=== PATIENT | female | born 1960 | race Caucasian/White ===

== ENCOUNTER 2017-05-16 15:50 | Inpatient (IN) | payer OTHER, MEDICAID ==
[~2017-05-16] VITALS: Ht 162.6 cm; Wt 164.3 kg
[~2017-05-16 15:50] MED LIST: ALLEGRA60 M2 PO; AMOXICILLIN500 MG PO; ASPIRIN81 M1 PO; AUGMENTIN 875 M1 TAB PO; AUGMENTIN 875875 MG PO; BUPROPION HCL150 M2 PO; CIPROFLOXACIN500 MG PO; DIFLUCAN150 MG PO; FEOSOL325 MG PO; FLEXERIL10 MG PO; FLONASE ALLERG9.9 ML NAS; HYDR25T PO; LASIX20 MG PO; LEVOFLOXACIN500 MG PO; LISINOPRIL10 MG PO; LOVASTATIN20 MG PO; MEDROL DOSEPAK4 MG PO; MOBIC7.5 MG PO; MOTRIN800 MG PO; NAPROSYN500 MG PO; NASAL SPRAY 1515 ML NS; NIFEDIPINE ER90 M1 PO; OCEAN NASAL SPR45 ML NAS; Rocaltrol0.25 MCG PO; TESSALON PERLE100 M1 PO; TESSALON PERLE200 MG PO; TRAMADOL HCL50 MG PO; ULTRAM50 MG PO; VICO10300 PO; ZESTRIL30 M1 PO; ZITHROMAX Z PA250 MG PO; ZITHROMAX250 MG PO
[2017-05-16 16:10] VITALS: BP 176/81
[2017-05-16] MEDS ORDERED: METFORMIN750 MG PO (16:13)
[2017-05-16 16:20] VITALS: BP 176/94
[2017-05-16 16:23] LABS: BASO % 0.6 % (0.0-1.0); EOS # 0.5 10*3/uL (0.0-0.4); EOS % 6.7 % (1.0-4.0); HEMATOCRIT 34.5 % (37.0-47.0); HEMOGLOBIN 11.6 g/dl (12.0-16.0); LYMPH # 2.4 10*3/uL (1.3-4.4); LYMPH % 34.7 % (27.0-41.0); MEAN CELL VOLUME 84.8 fl (81.0-99.0); MEAN CORPUSCULAR HGB 28.5 pg (27.0-31.0); MEAN CORPUSCULAR HGB CONC 33.6 g/dl (33.0-37.0); MEAN PLATELET VOLUME 9.4 fl (9.6-12.3); MONO # 0.8 10*3/uL (0.1-1.0); MONO % 11.6 % (3.0-9.0); NEUT # 3.2 10*3/uL (2.3-7.9); NEUT % 46.1 % (47.0-73.0); PLATELET COUNT AUTOMATED 288 10*3/uL (130-400); RED BLOOD COUNT 4.07 10*6/uL (4.10-5.10); RED CELL DISTRI WIDTH 14.1 % (0-14.5)
[2017-05-16 16:40] LABS: ALBUMIN 3.4 gm/dl (3.1-4.5); ALKALINE PHOSPHATASE 60 U/L (45-117); BILIRUBIN, TOTAL 0.8 mg/dl (0.2-1.0); BUN 18 mg/dl (7-24); CARBON DIOXIDE 31 mmol/L (21-32); CHLORIDE 96 mmol/L (98-107); EST GLOM FILT AFRICAN AMERICAN 48 ml/min; GLUCOSE 106 mg/dL (65-99); MAGNESIUM 1.5 mg/dL (1.5-2.1); POTASSIUM 2.6 mmol/L (3.5-5.1); SGOT/AST 22 IU/L (3-35); SGPT/ALT 21 U/L (12-78); SODIUM 139 mmol/L (136-145); TOTAL PROTEIN 7.9 gm/dL (6.4-8.2)
[2017-05-16 16:48] LABS: PROTHROMBIN TIME 10.5 SECONDS (9.0-12.4); TROPONIN I < 0.015 ng/ml (<0.045)
[2017-05-16 17:22] VITALS: BP 176/80
[2017-05-16 18:51] VITALS: BP 150/76
[2017-05-16 19:35] VITALS: BP 134/76
[2017-05-16 20:25] VITALS: BP 142/74
[2017-05-16] MEDS ORDERED: FLONASE ALLERG9.9 ML NAS (20:40)
[2017-05-17] VITALS: BP 116/54
[2017-05-17 06:23] LABS: BASO % 0.5 % (0.0-1.0); EOS # 0.4 10*3/uL (0.0-0.4); HEMATOCRIT 32.5 % (37.0-47.0); HEMOGLOBIN 10.8 g/dl (12.0-16.0); LYMPH # 1.7 10*3/uL (1.3-4.4); LYMPH % 30.3 % (27.0-41.0); MEAN CELL VOLUME 84.4 fl (81.0-99.0); MEAN CORPUSCULAR HGB 28.1 pg (27.0-31.0); MEAN CORPUSCULAR HGB CONC 33.2 g/dl (33.0-37.0); MEAN PLATELET VOLUME 10.3 fl (9.6-12.3); MONO # 0.6 10*3/uL (0.1-1.0); MONO % 10.9 % (3.0-9.0); NEUT # 2.9 10*3/uL (2.3-7.9); NEUT % 51.1 % (47.0-73.0); PLATELET COUNT AUTOMATED 244 10*3/uL (130-400); RED BLOOD COUNT 3.85 10*6/uL (4.10-5.10); WHITE BLOOD COUNT 5.7 10*3/uL (4.8-10.8)
[2017-05-17 06:24] LABS: HEMOGLOBIN A1c 5.8 % (4.8-5.6)
[2017-05-17 06:41] LABS: BUN 15 mg/dl (7-24); CARBON DIOXIDE 34 mmol/L (21-32); CHLORIDE 99 mmol/L (98-107); CHOLESTEROL 171 mg/dL (<200); EST GLOM FILT AFRICAN AMERICAN > 60 ml/min; GLUCOSE 106 mg/dL (65-99); MAGNESIUM 2.1 mg/dL (1.5-2.1); SODIUM 140 mmol/L (136-145); TRIGLYCERIDES 200 mg/dl (<150); VLDL CHOLESTEROL 40 mg/dL (6-40)
[2017-05-17 06:50] LABS: FREE T4 1.08 ng/dl (0.76-1.46); HDL CHOLESTEROL 44 mg/dl (40-60); LDL CHOLESTEROL 87 mg/dL (9-159)
[2017-05-17 07:03] LABS: VITAMIN D, 25-HYDROXY 34.1 ng/mL (30-100)
[2017-05-17 07:04] LABS: FOLIC ACID 8.62 ng/mL (>5.38)
[2017-05-17 08:00] VITALS: BP 110/70
[2017-05-17 12:00] VITALS: BP 135/75
[2017-05-17] MEDS ORDERED: K-Lor 20MEQ20 MEQ PO (15:29)
[2017-05-17 16:00] VITALS: BP 135/83
== END 2017-05-17 18:25 | disposition home or self-care (01) | DRG 309 ==
LOC: ED 15:50 → EDHOLD 18:11 → 5E 18:11
PROVIDERS: Emergency Medicine; Internal Medicine Hospice and Palliative Medicine
DX: R00.2 Palpitations (principal); Z68.44 Body mass index [BMI] 60.0-69.9, adult; N17.9 Acute kidney failure, unspecified; E87.8 Other disorders of electrolyte and fluid balance, not elsewhere classified; R07.9 Chest pain, unspecified; E78.00 Pure hypercholesterolemia, unspecified; G89.29 Other chronic pain; M54.9 Dorsalgia, unspecified; R73.9 Hyperglycemia, unspecified; R73.03 Prediabetes; K11.8 Other diseases of salivary glands; E87.6 Hypokalemia; E66.01 Morbid (severe) obesity due to excess calories; I10 Essential (primary) hypertension; Z79.82 Long term (current) use of aspirin; Z88.4 Allergy status to anesthetic agent; Z88.1 Allergy status to other antibiotic agents; Z88.2 Allergy status to sulfonamides; Z91.018 Allergy to other foods; Z88.5 Allergy status to narcotic agent; Z90.49 Acquired absence of other specified parts of digestive tract; Z82.49 Family history of ischemic heart disease and other diseases of the circulatory system; Z85.22 Personal history of malignant neoplasm of nasal cavities, middle ear, and accessory sinuses; Z87.891 Personal history of nicotine dependence; Z80.0 Family history of malignant neoplasm of digestive organs; Z92.3 Personal history of irradiation

== ENCOUNTER → 2017-05-26 | Outpatient (CLI) | payer OTHER, MEDICAID ==
[~2017-05-26] MED LIST changes: +K-Lor 20MEQ20 MEQ PO; +METFORMIN750 MG PO
== END | disposition home or self-care (01) ==
LOC: CARD 08:51
DX: I08.3 Combined rheumatic disorders of mitral, aortic and tricuspid valves (principal); R01.1 Cardiac murmur, unspecified; R00.2 Palpitations

== ENCOUNTER → 2018-02-07 | Outpatient (CLI) | payer OTHER | END | disposition home or self-care (01) | LOC: MAMMO 09:44 | DX: Z12.31 Encounter for screening mammogram for malignant neoplasm of breast (principal) ==

== ENCOUNTER → 2018-02-28 | Outpatient (CLI) | payer OTHER | END | disposition home or self-care (01) | LOC: US 12:26 | DX: N93.9 Abnormal uterine and vaginal bleeding, unspecified (principal); R31.9 Hematuria, unspecified ==

== ENCOUNTER → 2018-03-22 | Outpatient (CLI) | payer OTHER ==
[2018-03-22 08:21] LABS: BILIRUBIN NEGATIVE (NEGATIVE); BLOOD 3+ (NEGATIVE); CLARITY SL CLOUDY (CLEAR); COLOR YELLOW (YELLOW); GLUCOSE NEGATIVE (NEGATIVE); KETONE NEGATIVE (NEGATIVE); LEUKO ESTERASE NEGATIVE (NEGATIVE); NITRITE NEGATIVE (NEGATIVE); PH 5.5 (5.0-9.0); UROBILINOGEN 0.2 E.U./dl (0.2-1.0)
[2018-03-22 08:38] LABS: RBC TNTC rbc/hpf (0-2)
== END ==
LOC: LAB 07:59
PROVIDERS: Urology
DX: R31.9 Hematuria, unspecified (principal)

== ENCOUNTER → 2018-04-05 | Outpatient (CLI) | payer OTHER ==
[2018-04-05 14:22] LABS: CREATININE 1.19 mg/dL (0.55-1.02)
== END | disposition home or self-care (01) ==
LOC: LAB 13:30 → CT 15:00
PROVIDERS: Radiology Diagnostic Radiology
DX: R31.9 Hematuria, unspecified (principal)

== ENCOUNTER 2019-01-11 08:38 | Emergency (ER) | payer OTHER ==
[~2019-01-11] VITALS: Wt 160.1 kg
--- NOTE | ~2019-01-11 | EKG ---
[place], [place] ELECTROCARDIOGRAM REPORT NAME: NINA DE LA ROSA UNIT #: [id number] ROOM: DOCTOR: AMEYA DRAFT REPORT BIRTHDATE: [birth year] [facility] Test Date: 2019-01-11 Test Time: 08:45:53 Pat Name: NINA DE LA ROSA Department: Room: Gender: F Patent Law Specialist: Radha Bolden : 1960 Requested By: ANTON PINTO Order Number: [id number] Reading MD: Rigo Christie MD Measurements Intervals [place] Rate: 71 P: 54 MT: 179 QRS: 81 QRSD: 99 T: 24 QT: 404 QTc: 439 Interpretive Statements Sinus rhythm Borderline right axis deviation Borderline ST elevation, lateral leads No previous ECG available for comparison Electronically Signed On 01-11-2019 10:00:49 PDT by Rigo Christie MD CM:EKGRPT:ELECTROCARDIOGRAM REPORT [id number] DRAFT REPORT ANTON PINTO MD
[2019-01-11 08:39] VITALS: BP 164/64
[2019-01-11 08:59] LABS: BASO # 0.1 10*3/uL (0.0-0.1); EOS # 0.5 10*3/uL (0.0-0.4); EOS % 6.7 % (1.0-4.0); HEMATOCRIT 35.3 % (37.0-47.0); HEMOGLOBIN 11.3 g/dl (12.0-16.0); LYMPH # 1.9 10*3/uL (1.3-4.4); LYMPH % 28.3 % (27.0-41.0); MEAN CELL VOLUME 88.7 fl (81.0-99.0); MEAN CORPUSCULAR HGB 28.4 pg (27.0-31.0); MEAN PLATELET VOLUME 9.6 fl (9.6-12.3); MONO # 0.8 10*3/uL (0.1-1.0); NEUT # 3.6 10*3/uL (2.3-7.9); NEUT % 52.4 % (47.0-73.0); PLATELET COUNT AUTOMATED 293 10*3/uL (130-400); RED BLOOD COUNT 3.98 10*6/uL (4.10-5.10); RED CELL DISTRI WIDTH 13.8 % (0-14.5); WHITE BLOOD COUNT 6.8 10*3/uL (4.8-10.8)
[2019-01-11 09:05] LABS: ACT PARTIAL THROMBO TIME 21.3 SECONDS (20.8-31.5); INTERNATIONAL NORM RATIO 0.9 (2.0-3.5)
[2019-01-11 09:20] LABS: ALBUMIN 3.3 gm/dl (3.1-4.5); ALKALINE PHOSPHATASE 69 U/L (45-117); BUN 28 mg/dl (7-24); CHLORIDE 105 mmol/L (98-107); CREATININE 1.22 mg/dL (0.55-1.02); POTASSIUM 4.4 mmol/L (3.5-5.1); SGOT/AST 10 IU/L (3-35); SGPT/ALT 16 U/L (12-78); SODIUM 141 mmol/L (136-145); TOTAL PROTEIN 7.9 gm/dL (6.4-8.2)
[2019-01-11 09:29] LABS: TROPONIN I < 0.015 ng/ml (<0.045)
== END 2019-01-11 10:45 | disposition home or self-care (01) ==
LOC: ED 08:38
PROVIDERS: Emergency Medicine
DX: G89.29 Other chronic pain (principal); M54.6 Pain in thoracic spine; R07.89 Other chest pain; M79.18 Myalgia, other site; R05 Cough; E66.01 Morbid (severe) obesity due to excess calories; I10 Essential (primary) hypertension; E78.00 Pure hypercholesterolemia, unspecified; Z88.6 Allergy status to analgesic agent; Z91.018 Allergy to other foods; Z88.1 Allergy status to other antibiotic agents; Z88.2 Allergy status to sulfonamides; Z88.5 Allergy status to narcotic agent; Z79.899 Other long term (current) drug therapy; Z88.8 Allergy status to other drugs, medicaments and biological substances; Z79.82 Long term (current) use of aspirin; Z90.49 Acquired absence of other specified parts of digestive tract; Z90.710 Acquired absence of both cervix and uterus; Z87.891 Personal history of nicotine dependence

== ENCOUNTER → 2019-02-19 | Outpatient (CLI) | payer OTHER | END | disposition home or self-care (01) | LOC: CARD 12:15 | DX: I08.0 Rheumatic disorders of both mitral and aortic valves (principal); R00.2 Palpitations ==

== ENCOUNTER 2019-09-19 11:00 | Emergency (ER) | payer OTHER ==
[~2019-09-19] VITALS: Ht 160 cm; Wt 163.3 kg
[2019-09-19 11:00] VITALS: BP 168/61
[2019-09-19] MEDS ORDERED: SEPTDS PO (13:35)
[2019-09-19] MEDS ORDERED: AMOXICILLIN500 M3 PO (14:00)
== END 2019-09-19 14:07 | disposition home or self-care (01) ==
LOC: ED 11:00
DX: J01.90 Acute sinusitis, unspecified (principal); M25.511 Pain in right shoulder; E11.9 Type 2 diabetes mellitus without complications; E78.00 Pure hypercholesterolemia, unspecified; I10 Essential (primary) hypertension; K21.9 Gastro-esophageal reflux disease without esophagitis; E66.01 Morbid (severe) obesity due to excess calories; E07.9 Disorder of thyroid, unspecified; Z88.6 Allergy status to analgesic agent; Z88.8 Allergy status to other drugs, medicaments and biological substances; Z88.1 Allergy status to other antibiotic agents; Z88.2 Allergy status to sulfonamides; Z88.5 Allergy status to narcotic agent; Z79.899 Other long term (current) drug therapy; Z79.82 Long term (current) use of aspirin; Z87.891 Personal history of nicotine dependence

== ENCOUNTER → 2019-11-20 | Outpatient (CLI) | payer OTHER ==
[~2019-11-20] MED LIST changes: +AMOXICILLIN500 M3 PO; +SEPTDS PO
== END | disposition home or self-care (01) ==
LOC: MAMMO 11-06 08:30
DX: Z12.31 Encounter for screening mammogram for malignant neoplasm of breast (principal)

== ENCOUNTER 2020-01-06 16:34 | Inpatient (IN) | payer OTHER ==
[~2020-01-06] VITALS: Ht 157.4 cm; Wt 179.7 kg
[2020-01-06 16:36] VITALS: BP 146/65
[2020-01-06 17:14] LABS: BASO % 0.5 % (0.0-1.0); EOS # 0.3 10*3/uL (0.0-0.4); EOS % 5.2 % (1.0-4.0); HEMATOCRIT 32.9 % (37.0-47.0); HEMOGLOBIN 10.5 g/dl (12.0-16.0); LYMPH # 1.9 10*3/uL (1.3-4.4); LYMPH % 29.1 % (27.0-41.0); MEAN CELL VOLUME 87.5 fl (81.0-99.0); MEAN CORPUSCULAR HGB 27.9 pg (27.0-31.0); MEAN CORPUSCULAR HGB CONC 31.9 g/dl (33.0-37.0); MEAN PLATELET VOLUME 9.9 fl (9.6-12.3); MONO # 0.8 10*3/uL (0.1-1.0); MONO % 12.1 % (3.0-9.0); NEUT # 3.4 10*3/uL (2.3-7.9); NEUT % 52.5 % (47.0-73.0); PLATELET COUNT AUTOMATED 245 10*3/uL (130-400); RED BLOOD COUNT 3.76 10*6/uL (4.10-5.10); RED CELL DISTRI WIDTH 14.1 % (0-14.5); WHITE BLOOD COUNT 6.5 10*3/uL (4.8-10.8)
[2020-01-06 17:31] LABS: ALBUMIN 2.9 gm/dl (3.1-4.5); ALKALINE PHOSPHATASE 66 U/L (45-117); BUN 22 mg/dl (7-24); CHLORIDE 100 mmol/L (98-107); CREATININE 1.23 mg/dL (0.55-1.02); SGOT/AST 15 IU/L (3-35); SGPT/ALT 18 U/L (12-78); SODIUM 135 mmol/L (136-145); TOTAL PROTEIN 7.3 gm/dL (6.4-8.2)
[2020-01-06 17:32] LABS: INTERNATIONAL NORM RATIO 0.9 (2.0-3.5)
[2020-01-06 17:34] LABS: TROPONIN I < 0.015 ng/ml (<0.045)
[2020-01-06 20:18] VITALS: BP 160/77
[2020-01-06 20:30] VITALS: BP 156/63
--- NOTE | 2020-01-06 20:31 | NUR ---
A 59, admitted to , under the services of JOEL Birmingham DO with a diagnosis of CHEST PAIN. Chief complaint is CHEST PAIN. Patient arrived via stretcher from ER. Monitor applied. Initial assessment completed. Vital signs taken and recorded. JOEL BIRMINGHAM DO notified of admission to the unit. Orders received. See assessment for past medical history, medications and allergies. Patient and/or family oriented to unit. [facility]. Clothing/patient valuable form completed. KOTA BENJAMIN
--- NOTE | 2020-01-06 20:39 | NUR ---
PATIENT'S MED REC PARTIALLY COMPLETED. PATIENT UNSURE OF ALL MEDICATIONS AND LIST WAS LEFT AT HOME.
--- NOTE | 2020-01-06 20:51 | NUR ---
DR BERGERON'S ANSWERING SERVICE AWARE OF CONSULT. REQUESTED CALL BACK
--- NOTE | 2020-01-06 20:57 | NUR ---
SPOKE WITH DOCTOR BERGERON REGARDING PATIENT. STATES TO HOLD OFF ON THE VQ SCAN AND THE STRESS TEST UNTIL SOMEONE SEE'S THE PATIENT IN THE MORNING. STATES HE DOES NOT WANT TO ORDER LOVENOX DUE TO THE PATIENT'S WEIGHT. HEPARIN DRIP ORDER TAKEN AT THIS TIME. STATES TO KEEP THE PATIENT NPO AFTER MIDNIGHT.
--- NOTE | 2020-01-06 21:05 | NUR ---
DR BERGERON STATES TO STOP NORMAL SALINE FLUIDS.
[2020-01-06 21:25] LABS: BASO % 0.4 % (0.0-1.0); EOS # 0.4 10*3/uL (0.0-0.4); HEMATOCRIT 32.9 % (37.0-47.0); HEMOGLOBIN 10.6 g/dl (12.0-16.0); LYMPH # 2.5 10*3/uL (1.3-4.4); LYMPH % 34.6 % (27.0-41.0); MEAN CELL VOLUME 86.8 fl (81.0-99.0); MEAN CORPUSCULAR HGB CONC 32.2 g/dl (33.0-37.0); MEAN PLATELET VOLUME 9.7 fl (9.6-12.3); MONO # 0.8 10*3/uL (0.1-1.0); MONO % 10.6 % (3.0-9.0); NEUT # 3.5 10*3/uL (2.3-7.9); PLATELET COUNT AUTOMATED 257 10*3/uL (130-400); RED BLOOD COUNT 3.79 10*6/uL (4.10-5.10); RED CELL DISTRI WIDTH 14.2 % (0-14.5); WHITE BLOOD COUNT 7.2 10*3/uL (4.8-10.8)
[2020-01-06 21:36] LABS: ACT PARTIAL THROMBO TIME 25.5 SECONDS (20.0-32.1); INTERNATIONAL NORM RATIO 0.9 (2.0-3.5)
--- NOTE | 2020-01-06 22:01 | NUR ---
HEPARIN DRIP VERIFIED WITH NORA THOMPSON AND SHRUTHI FROM PHARMACY.
--- NOTE | 2020-01-06 22:04 | NUR ---
SPOKE TO PHARMACIST SHRUTHI REGARDING HEPARIN PROTOCOL. PATIENT'S WEIGHT IS 180KG. GTT ORDERED AT 12 UNITS/KG/HR. THIS CALLS FOR 2,160 UNITS/HR. PER POLICY, MAX DOSE IS 1,000 UNITS/HR. PER SHRUTHI, RUN HEPARIN GTT AT 5.55 UNITS/KG/HR, WHICH EQUALS 10 ML/HR. HEPARIN GTT INITIATED AND VERIFIED BY TWO RNs.
[2020-01-07] VITALS: BP 122/49
[2020-01-07 03:58] LABS: BASO % 0.5 % (0.0-1.0); EOS # 0.4 10*3/uL (0.0-0.4); EOS % 6.8 % (1.0-4.0); HEMATOCRIT 33.2 % (37.0-47.0); HEMOGLOBIN 10.6 g/dl (12.0-16.0); LYMPH # 2.3 10*3/uL (1.3-4.4); MEAN CELL VOLUME 87.1 fl (81.0-99.0); MEAN CORPUSCULAR HGB 27.8 pg (27.0-31.0); MEAN CORPUSCULAR HGB CONC 31.9 g/dl (33.0-37.0); MEAN PLATELET VOLUME 10.2 fl (9.6-12.3); MONO # 0.7 10*3/uL (0.1-1.0); MONO % 10.4 % (3.0-9.0); PLATELET COUNT AUTOMATED 250 10*3/uL (130-400); RED BLOOD COUNT 3.81 10*6/uL (4.10-5.10); RED CELL DISTRI WIDTH 14.1 % (0-14.5); WHITE BLOOD COUNT 6.4 10*3/uL (4.8-10.8)
[2020-01-07 04:09] LABS: INTERNATIONAL NORM RATIO 0.9 (2.0-3.5)
--- NOTE | 2020-01-07 04:15 | NUR ---
HEPARIN DRIP INCREASED PER POLICY. VERIFIED BY NORA THOMPSON
[2020-01-07 04:16] LABS: CREATININE 1.19 mg/dL (0.55-1.02); FREE T4 1.02 ng/dl (0.76-1.46); PHOSPHOROUS 3.4 mg/dL (2.5-4.9); POTASSIUM 3.1 mmol/L (3.5-5.1)
[2020-01-07 04:22] LABS: THYROID STIM HORMONE (HS) 6.11 uIU/ml (0.358-4.75)
[2020-01-07 05:42] LABS: VITAMIN D, 25-HYDROXY 25.1 ng/mL (30-100)
[2020-01-07 08:00] VITALS: BP 131/55
--- NOTE | 2020-01-07 09:15 | NUR ---
PT RESTING IN BED. NO DISTRESS NOTED. WILL MONITOR DR MARKS IN TO SEE PT
--- NOTE | 2020-01-07 11:45 | NUR ---
INFORMED CONSENT OBTAINED FOR LEXISCAN NUCLEAR STRESS TEST WITH DR. CHAN. RESTING EKG NSR WITH A RESTING HR OF 72 WITH BP OF 118/84. LUNGS CLEAR WITH SPO2 OF 95% ON ROOM AIR. PT COMPLETED A 1:00 LEXISCAN PROTOCOL RECEIVING LEXISCAN 0.4 MG IV OVER 10 SECONDS. HAD NO CHEST PAIN OR ANY EKG CHANGES. HAD C/O FEELING "LIGHTHEADED" THAT WAS RELIEVED IN RECOVERY. HAD A PEAK HR OF 88 WITH BP OF 108/70. LAST RECOVERY HR OF 78 WITH BP OF 104/70. AWAITING SCANNING IN STABLE CONDITION.
--- NOTE | 2020-01-07 12:08 | NUR ---
Planer Operator in to talk to patient. Patient states lives at home with grandson. There are no steps in the home. Physician: tres frey [facility] Home health services: none Patient's level of ADLs: INDEPENDENT Patient has working utilities: all working DME: cane Follow-up physician's appointment after d/c: will be made by hospitalist nurse director upon discharge Does patient want to access PORTAL?: no Discharge plan discussed with patient, she states she lives at home with her grandson, she uses a cane for ambulation and is independent in adls, she states she will return home when medically stable, discussed with her VNA and she wanted to think about this, case management will follow. OZIEL LYONS
--- NOTE | 2020-01-07 12:19 | NUR ---
Provided patients family member with HPOA papers as requested
[2020-01-07 16:00] VITALS: BP 113/89
--- NOTE | 2020-01-07 19:55 | NUR ---
PATIENT RESTING IN BED WITH VISITORS AT BEDSIDE. DENIES NEEDS AT THIS TIME. BED IN LOWEST POSITION, CALL LIGHT IN REACH
[2020-01-07 20:00] VITALS: BP 124/68
--- NOTE | 2020-01-07 21:24 | NUR ---
PROCARDIA WASTED IN [facility] [place] AT NURSES STATION. SPOKE WITH SHRUTHI IN PHARMACY AND MADE HIM AWARE
[2020-01-08] VITALS: BP 118/52
--- NOTE | 2020-01-08 02:35 | NUR ---
24 HR chart check completed.
[2020-01-08 06:31] LABS: BASO % 0.6 % (0.0-1.0); EOS # 0.4 10*3/uL (0.0-0.4); EOS % 5.8 % (1.0-4.0); HEMATOCRIT 32.6 % (37.0-47.0); HEMOGLOBIN 10.4 g/dl (12.0-16.0); LYMPH # 1.8 10*3/uL (1.3-4.4); LYMPH % 27.6 % (27.0-41.0); MEAN CELL VOLUME 86.9 fl (81.0-99.0); MEAN CORPUSCULAR HGB 27.7 pg (27.0-31.0); MEAN CORPUSCULAR HGB CONC 31.9 g/dl (33.0-37.0); MEAN PLATELET VOLUME 10.2 fl (9.6-12.3); MONO # 0.7 10*3/uL (0.1-1.0); MONO % 11.4 % (3.0-9.0); NEUT # 3.5 10*3/uL (2.3-7.9); NEUT % 54.1 % (47.0-73.0); PLATELET COUNT AUTOMATED 259 10*3/uL (130-400); RED BLOOD COUNT 3.75 10*6/uL (4.10-5.10); RED CELL DISTRI WIDTH 14.3 % (0-14.5); WHITE BLOOD COUNT 6.4 10*3/uL (4.8-10.8)
[2020-01-08 06:46] LABS: CREATININE 1.21 mg/dL (0.55-1.02); POTASSIUM 2.9 mmol/L (3.5-5.1)
[2020-01-08 08:00] VITALS: BP 117/50
--- NOTE | 2020-01-08 08:14 | NUR ---
RESIDENT IN TO SEE PATIENT AT THIS TIME.
--- NOTE | 2020-01-08 09:00 | NUR ---
case management visits with patient, daughter present, patient states she will return home when medically stable and is agreeable to [facility] nursing, case management will send a referral to [facility] for when patient is medically stable for discharge
[2020-01-08 12:00] VITALS: BP 124/66
--- NOTE | 2020-01-08 12:00 | NUR ---
IN TO SEE PATIENT.
--- NOTE | 2020-01-08 14:57 | NUR ---
MS Patient signed out AMA. Patient encouraged to stay and advised of possible consequences of premature discharge. Physician and supervisor pipe manufacture ROBERT notified. Patient instructed what to do regarding care post-departure from the hospital; emergency phone numbers provided. Patent was accompanied by DAUGHTER. JULIO GALICIA
== END 2020-01-08 14:57 | disposition left against medical advice (07) | DRG 392 ==
LOC: ED 16:34 → 4E 18:38 → EDHOLD 18:38 → 4E 19:47
PROVIDERS: Emergency Medicine; Internal Medicine; Internal Medicine Cardiovascular Disease; ADMIT Family Medicine
PROC: 4A02XM4 Measurement of Cardiac Total Activity, External Approach (ICD-10-PCS; principal; 2020-01-07)
PROC: 3E073KZ Introduction of Other Diagnostic Substance into Coronary Artery, Percutaneous Approach (ICD-10-PCS; principal; 2020-01-07)
DX: K21.9 Gastro-esophageal reflux disease without esophagitis (principal); E87.1 Hypo-osmolality and hyponatremia; E44.0 Moderate protein-calorie malnutrition; Z68.45 Body mass index [BMI] 70 or greater, adult; E87.6 Hypokalemia; R79.89 Other specified abnormal findings of blood chemistry; M54.9 Dorsalgia, unspecified; G89.29 Other chronic pain; I12.9 Hypertensive chronic kidney disease with stage 1 through stage 4 chronic kidney disease, or unspecified chronic kidney disease; E78.00 Pure hypercholesterolemia, unspecified; E66.01 Morbid (severe) obesity due to excess calories; D64.9 Anemia, unspecified; I89.0 Lymphedema, not elsewhere classified; N18.3 Chronic kidney disease, stage 3 (moderate); Z53.29 Procedure and treatment not carried out because of patient's decision for other reasons; Z88.1 Allergy status to other antibiotic agents; Z88.5 Allergy status to narcotic agent; Z88.2 Allergy status to sulfonamides; Z88.8 Allergy status to other drugs, medicaments and biological substances; Z91.018 Allergy to other foods; Z79.82 Long term (current) use of aspirin; Z79.899 Other long term (current) drug therapy; Z90.49 Acquired absence of other specified parts of digestive tract; Z90.710 Acquired absence of both cervix and uterus; Z85.89 Personal history of malignant neoplasm of other organs and systems; Z87.891 Personal history of nicotine dependence; Z82.49 Family history of ischemic heart disease and other diseases of the circulatory system; Z80.8 Family history of malignant neoplasm of other organs or systems

== ENCOUNTER → 2021-02-18 | Outpatient (CLI) | payer OTHER | END | disposition home or self-care (01) | LOC: MAMMO 02-10 14:00 | PROVIDERS: ATTEND Internal Medicine | DX: Z12.31 Encounter for screening mammogram for malignant neoplasm of breast (principal); N63.11 Unspecified lump in the right breast, upper outer quadrant ==

== ENCOUNTER 2021-04-21 08:52 | Emergency (ER) | payer OTHER ==
[~2021-04-21] VITALS: Ht 157.4 cm; Wt 130.2 kg
[2021-04-21 08:55] VITALS: BP 137/65
== END 2021-04-21 12:59 | disposition home or self-care (01) ==
LOC: ED 08:52
DX: M79.671 Pain in right foot (principal); I12.9 Hypertensive chronic kidney disease with stage 1 through stage 4 chronic kidney disease, or unspecified chronic kidney disease; N18.30 Chronic kidney disease, stage 3 unspecified; E66.01 Morbid (severe) obesity due to excess calories; Z98.890 Other specified postprocedural states; Z90.49 Acquired absence of other specified parts of digestive tract; Z90.711 Acquired absence of uterus with remaining cervical stump; Z88.8 Allergy status to other drugs, medicaments and biological substances; Z88.6 Allergy status to analgesic agent; Z88.2 Allergy status to sulfonamides; Z79.899 Other long term (current) drug therapy

== ENCOUNTER → 2021-08-03 | Outpatient (CLI) | payer OTHER | END | disposition home or self-care (01) | LOC: RAD 14:08 | PROVIDERS: ATTEND Internal Medicine | DX: M17.0 Bilateral primary osteoarthritis of knee (principal); M25.762 Osteophyte, left knee; M25.761 Osteophyte, right knee ==

== ENCOUNTER 2022-02-08 03:10 | Inpatient (IN) | payer OTHER ==
[~2022-02-08] VITALS: Ht 157.4 cm; Wt 178.7 kg
[2022-02-08] VITALS (12 sets, daily range): BP systolic 95–160; BP diastolic 55–78
[2022-02-08 03:25] LABS: BASO % 0.6 % (0.0-1.0); EOS # 0.4 10*3/uL (0.0-0.4); EOS % 5.2 % (1.0-4.0); HEMATOCRIT 34.8 % (37.0-47.0); LYMPH # 2.8 10*3/uL (1.3-4.4); LYMPH % 39.9 % (27.0-41.0); MEAN CELL VOLUME 84.7 fl (81.0-99.0); MEAN PLATELET VOLUME 9.2 fl (9.6-12.3); MONO # 0.7 10*3/uL (0.1-1.0); MONO % 9.6 % (3.0-9.0); NEUT # 3.1 10*3/uL (2.3-7.9); NEUT % 44.3 % (47.0-73.0); PLATELET COUNT AUTOMATED 243 10*3/uL (130-400); RED BLOOD COUNT 4.11 10*6/uL (4.10-5.10); RED CELL DISTRI WIDTH 14.2 % (0-14.5)
[2022-02-08 03:42] LABS: ACT PARTIAL THROMBO TIME 25.3 SECONDS (20.0-32.1); CREATININE 1.33 mg/dL (0.55-1.02); POTASSIUM 3.5 mmol/L (3.5-5.1)
[2022-02-08] MEDS ORDERED: OMEPRAZOLE40 MG PO (03:52)
[2022-02-08] MEDS ORDERED: LOVASTATIN40 MG PO (03:55)
[2022-02-08] MEDS ORDERED: Synthroid,Levo25 MCG PO (03:56)
[2022-02-08] MEDS ORDERED: HYDROCHLOROTHIA50 M1 PO (03:58)
[2022-02-08 14:31] LABS: BILIRUBIN Negative (Negative); BLOOD 2+ (Negative); CLARITY Clear (Clear); COLOR Yellow (Yellow); GLUCOSE Negative (Negative); KETONE Negative (Negative); LEUKO ESTERASE 1+ (Negative); NITRITE Negative (Negative); UROBILINOGEN 0.2 E.U./dl (0.0-1.0)
[2022-02-08 14:47] LABS: BACTERIA 4+; WBC 31-40 wbc/hpf (0-5)
[2022-02-09] VITALS: BP 117/62
[2022-02-09 06:45] LABS: POTASSIUM 3.8 mmol/L (3.5-5.1); TOTAL PROTEIN 7.1 gm/dL (6.4-8.2)
[2022-02-09 06:55] LABS: CREATININE 1.17 mg/dL (0.55-1.02); FREE T4 1.04 ng/dl (0.76-1.46); THYROID STIM HORMONE (HS) 6.31 uIU/ml (0.358-4.75)
[2022-02-09 07:02] LABS: BASO # 0.1 10*3/uL (0.0-0.1); BASO % 0.7 % (0.0-1.0); EOS # 0.5 10*3/uL (0.0-0.4); HEMATOCRIT 35.1 % (37.0-47.0); LYMPH # 2.4 10*3/uL (1.3-4.4); LYMPH % 32.3 % (27.0-41.0); MEAN CELL VOLUME 85.4 fl (81.0-99.0); MEAN CORPUSCULAR HGB CONC 32.8 g/dl (33.0-37.0); MEAN PLATELET VOLUME 10.6 fl (9.6-12.3); MONO # 0.8 10*3/uL (0.1-1.0); MONO % 10.5 % (3.0-9.0); NEUT # 3.6 10*3/uL (2.3-7.9); NEUT % 49.1 % (47.0-73.0); PLATELET COUNT AUTOMATED 269 10*3/uL (130-400); RED BLOOD COUNT 4.11 10*6/uL (4.10-5.10); RED CELL DISTRI WIDTH 14.3 % (0-14.5); WHITE BLOOD COUNT 7.3 10*3/uL (4.8-10.8)
[2022-02-09 08:00] VITALS: BP 122/72
[2022-02-09] MEDS ORDERED: METOPROLOL SUCC50 M1 PO (10:50)
[2022-02-09] MEDS ORDERED: XARELTO20 M1 PO (10:56)
[2022-02-09 12:00] VITALS: BP 138/75
== END 2022-02-09 15:50 | disposition home or self-care (01) | DRG 313 ==
LOC: ED 03:10 → EDHOLD 06:08 → 4E 06:08
PROVIDERS: Internal Medicine; ADMIT Internal Medicine; ATTEND Internal Medicine
DX: R07.89 Other chest pain (principal); N17.0 Acute kidney failure with tubular necrosis; E44.1 Mild protein-calorie malnutrition; Z68.45 Body mass index [BMI] 70 or greater, adult; I48.0 Paroxysmal atrial fibrillation; I12.9 Hypertensive chronic kidney disease with stage 1 through stage 4 chronic kidney disease, or unspecified chronic kidney disease; E78.00 Pure hypercholesterolemia, unspecified; N18.30 Chronic kidney disease, stage 3 unspecified; D64.9 Anemia, unspecified; Z90.49 Acquired absence of other specified parts of digestive tract; Z90.710 Acquired absence of both cervix and uterus; Z82.49 Family history of ischemic heart disease and other diseases of the circulatory system; Z88.2 Allergy status to sulfonamides; Z88.8 Allergy status to other drugs, medicaments and biological substances; Z88.1 Allergy status to other antibiotic agents; Z88.5 Allergy status to narcotic agent; Z79.899 Other long term (current) drug therapy; Z79.82 Long term (current) use of aspirin

== ENCOUNTER → 2022-02-21 | Outpatient (CLI) | payer OTHER ==
[~2022-02-21] MED LIST changes: +HYDROCHLOROTHIA50 M1 PO; +LOVASTATIN40 MG PO; +METOPROLOL SUCC50 M1 PO; +OMEPRAZOLE40 MG PO; +Synthroid,Levo25 MCG PO; +XARELTO20 M1 PO
== END | disposition home or self-care (01) ==
LOC: MAMMO 02-16 11:00
PROVIDERS: ATTEND Internal Medicine
DX: Z12.31 Encounter for screening mammogram for malignant neoplasm of breast (principal)

== ENCOUNTER 2022-03-15 13:46 | Emergency (ER) | payer OTHER ==
[~2022-03-15] VITALS: Ht 157.4 cm; Wt 169.6 kg
[2022-03-15 15:01] LABS: BASO % 0.7 % (0.0-1.0); EOS # 0.3 10*3/uL (0.0-0.4); EOS % 4.8 % (1.0-4.0); HEMATOCRIT 35.8 % (37.0-47.0); LYMPH # 1.7 10*3/uL (1.3-4.4); LYMPH % 28.8 % (27.0-41.0); MEAN CELL VOLUME 86.3 fl (81.0-99.0); MEAN CORPUSCULAR HGB CONC 32.4 g/dl (33.0-37.0); MEAN PLATELET VOLUME 9.5 fl (9.6-12.3); MONO # 0.7 10*3/uL (0.1-1.0); MONO % 12.1 % (3.0-9.0); NEUT # 3.1 10*3/uL (2.3-7.9); NEUT % 53.3 % (47.0-73.0); PLATELET COUNT AUTOMATED 245 10*3/uL (130-400); RED BLOOD COUNT 4.15 10*6/uL (4.10-5.10); RED CELL DISTRI WIDTH 14.1 % (0-14.5); WHITE BLOOD COUNT 5.8 10*3/uL (4.8-10.8)
[2022-03-15 15:16] LABS: ALKALINE PHOSPHATASE 63 U/L (45-117); BUN 19 mg/dl (7-24); CHLORIDE 106 mmol/L (98-107); CREATININE 1.05 mg/dL (0.55-1.02); POTASSIUM 4.3 mmol/L (3.5-5.1); SGOT/AST 17 IU/L (3-35); SGPT/ALT 21 U/L (12-78); SODIUM 139 mmol/L (136-145); TOTAL PROTEIN 7.3 gm/dL (6.4-8.2)
[2022-03-15 17:05] VITALS: BP 154/53
[2022-03-15] MEDS ORDERED: DEEP SEA44 ML INH (17:10)
== END 2022-03-15 17:31 | disposition left against medical advice (07) ==
LOC: ED 13:46
PROVIDERS: Physician Assistant
DX: R51.9 Headache, unspecified (principal); K21.9 Gastro-esophageal reflux disease without esophagitis; I10 Essential (primary) hypertension; E78.00 Pure hypercholesterolemia, unspecified; E66.01 Morbid (severe) obesity due to excess calories; Z88.8 Allergy status to other drugs, medicaments and biological substances; Z79.899 Other long term (current) drug therapy; Z87.891 Personal history of nicotine dependence; Z90.49 Acquired absence of other specified parts of digestive tract; Z90.710 Acquired absence of both cervix and uterus; Z90.89 Acquired absence of other organs

== ENCOUNTER 2022-03-21 19:53 | Emergency (ER) | payer OTHER ==
[~2022-03-21] VITALS: Ht 167.6 cm; Wt 184.6 kg
[~2022-03-21 19:53] MED LIST changes: +DEEP SEA44 ML INH
[2022-03-21 20:20] LABS: BASO # 0.1 10*3/uL (0.0-0.1); BASO % 0.7 % (0.0-1.0); EOS # 0.4 10*3/uL (0.0-0.4); EOS % 5.1 % (1.0-4.0); HEMATOCRIT 33.9 % (37.0-47.0); LYMPH # 2.4 10*3/uL (1.3-4.4); MEAN CELL VOLUME 86.3 fl (81.0-99.0); MEAN CORPUSCULAR HGB 27.7 pg (27.0-31.0); MEAN CORPUSCULAR HGB CONC 32.2 g/dl (33.0-37.0); MEAN PLATELET VOLUME 9.6 fl (9.6-12.3); MONO # 0.9 10*3/uL (0.1-1.0); NEUT # 3.2 10*3/uL (2.3-7.9); NEUT % 45.8 % (47.0-73.0); PLATELET COUNT AUTOMATED 256 10*3/uL (130-400); RED BLOOD COUNT 3.93 10*6/uL (4.10-5.10); RED CELL DISTRI WIDTH 14.2 % (0-14.5); WHITE BLOOD COUNT 6.9 10*3/uL (4.8-10.8)
[2022-03-21 20:32] LABS: ACT PARTIAL THROMBO TIME 32.1 SECONDS (20.0-32.1); INTERNATIONAL NORM RATIO 1.1 (2.0-3.5)
[2022-03-21 20:35] LABS: ALKALINE PHOSPHATASE 57 U/L (45-117); BUN 22 mg/dl (7-24); CHLORIDE 104 mmol/L (98-107); CREATININE 1.11 mg/dL (0.55-1.02); POTASSIUM 4.7 mmol/L (3.5-5.1); SGOT/AST 14 IU/L (3-35); SGPT/ALT 18 U/L (12-78); SODIUM 139 mmol/L (136-145); TOTAL PROTEIN 6.8 gm/dL (6.4-8.2)
[2022-03-21 23:44] VITALS: BP 156/77
== END 2022-03-21 23:45 | disposition home or self-care (01) ==
LOC: ED 19:53
PROVIDERS: Emergency Medicine
DX: I16.0 Hypertensive urgency (principal); Z88.1 Allergy status to other antibiotic agents; Z88.8 Allergy status to other drugs, medicaments and biological substances; Z79.899 Other long term (current) drug therapy; Z79.82 Long term (current) use of aspirin; Z90.89 Acquired absence of other organs; Z90.49 Acquired absence of other specified parts of digestive tract; Z90.710 Acquired absence of both cervix and uterus; Z87.891 Personal history of nicotine dependence

== ENCOUNTER 2022-07-31 14:11 | Emergency (ER) | payer OTHER ==
[~2022-07-31] VITALS: Ht 160 cm; Wt 136.1 kg
[2022-07-31 14:45] LABS: BASO % 0.2 % (0.0-1.0); EOS # 0.1 10*3/uL (0.0-0.4); EOS % 0.5 % (1.0-4.0); HEMATOCRIT 37.8 % (37.0-47.0); LYMPH # 0.5 10*3/uL (1.3-4.4); LYMPH % 4.2 % (27.0-41.0); MEAN CELL VOLUME 83.6 fl (81.0-99.0); MEAN CORPUSCULAR HGB 27.4 pg (27.0-31.0); MEAN CORPUSCULAR HGB CONC 32.8 g/dl (33.0-37.0); MEAN PLATELET VOLUME 9.8 fl (9.6-12.3); MONO % 8.2 % (3.0-9.0); NEUT # 10.7 10*3/uL (2.3-7.9); NEUT % 86.4 % (47.0-73.0); PLATELET COUNT AUTOMATED 220 10*3/uL (130-400); RED BLOOD COUNT 4.52 10*6/uL (4.10-5.10); RED CELL DISTRI WIDTH 13.7 % (0-14.5); WHITE BLOOD COUNT 12.4 10*3/uL (4.8-10.8)
[2022-07-31 14:59] LABS: CREATININE 1.26 mg/dL (0.55-1.02); POTASSIUM 4.3 mmol/L (3.5-5.1); TOTAL PROTEIN 7.4 gm/dL (6.4-8.2)
[2022-07-31 17:07] VITALS: BP 162/74
[2022-08-01] MEDS ORDERED: METOPROLOL SUCC50 M1 PO (22:36)
[2022-08-04] MEDS ORDERED: AMOXICILLIN500 M3 PO (16:34)
== END 2022-07-31 18:15 | disposition home or self-care (01) ==
LOC: ED 14:11
PROVIDERS: Nurse Practitioner Family
DX: B34.9 Viral infection, unspecified (principal); Z20.822 Contact with and (suspected) exposure to COVID-19; Z88.1 Allergy status to other antibiotic agents; Z88.8 Allergy status to other drugs, medicaments and biological substances; Z79.899 Other long term (current) drug therapy; Z79.82 Long term (current) use of aspirin; Z90.710 Acquired absence of both cervix and uterus; Z90.49 Acquired absence of other specified parts of digestive tract; Z90.89 Acquired absence of other organs; Z87.891 Personal history of nicotine dependence

== ENCOUNTER 2022-08-08 21:50 | Emergency (ER) | payer OTHER ==
[~2022-08-08] VITALS: Wt 183.7 kg
[2022-08-08 22:51] LABS: BASO % 0.5 % (0.0-1.0); EOS # 0.2 10*3/uL (0.0-0.4); EOS % 2.4 % (1.0-4.0); HEMATOCRIT 30.6 % (37.0-47.0); LYMPH # 1.8 10*3/uL (1.3-4.4); LYMPH % 21.1 % (27.0-41.0); MEAN CELL VOLUME 85.5 fl (81.0-99.0); MEAN CORPUSCULAR HGB 26.8 pg (27.0-31.0); MEAN CORPUSCULAR HGB CONC 31.4 g/dl (33.0-37.0); MEAN PLATELET VOLUME 9.8 fl (9.6-12.3); MONO # 0.9 10*3/uL (0.1-1.0); MONO % 10.1 % (3.0-9.0); NEUT # 5.5 10*3/uL (2.3-7.9); NEUT % 64.1 % (47.0-73.0); PLATELET COUNT AUTOMATED 331 10*3/uL (130-400); RED BLOOD COUNT 3.58 10*6/uL (4.10-5.10); WHITE BLOOD COUNT 8.5 10*3/uL (4.8-10.8)
[2022-08-08 23:08] LABS: CREATININE 1.65 mg/dL (0.55-1.02); POTASSIUM 4.7 mmol/L (3.5-5.1); TOTAL PROTEIN 6.6 gm/dL (6.4-8.2)
[2022-08-08 23:18] LABS: BILIRUBIN 2+ (Negative); BLOOD 3+ (Negative); CLARITY Turbid (Clear); COLOR Dark Yellow (Yellow); GLUCOSE Trace (Negative); KETONE Trace (Negative); LEUKO ESTERASE 1+ (Negative); NITRITE Negative (Negative); SPECIFIC GRAVITY >= 1.030 (1.001-1.030)
[2022-08-08 23:27] LABS: RBC 31-40 rbc/hpf (0-2)
[2022-08-08 23:28] LABS: BACTERIA 2+; EPITHELIAL CELLS TNTC
[2022-08-09 02:22] VITALS: BP 99/57
== END 2022-08-09 03:34 | disposition short-term general hospital (02) ==
LOC: ED 21:50
PROVIDERS: Internal Medicine
DX: R10.31 Right lower quadrant pain (principal); M25.551 Pain in right hip; Z87.891 Personal history of nicotine dependence; Z90.49 Acquired absence of other specified parts of digestive tract; Z90.710 Acquired absence of both cervix and uterus; Z79.82 Long term (current) use of aspirin; Z79.899 Other long term (current) drug therapy; Z88.2 Allergy status to sulfonamides; Z88.1 Allergy status to other antibiotic agents; Z88.5 Allergy status to narcotic agent

== ENCOUNTER → 2023-09-07 | Outpatient (CLI) | payer OTHER | END | disposition home or self-care (01) | LOC: MAMMO 08-14 08:00 | PROVIDERS: ATTEND Internal Medicine | DX: Z12.31 Encounter for screening mammogram for malignant neoplasm of breast (principal) ==

== ENCOUNTER 2024-06-30 10:47 | Emergency (ER) | payer OTHER ==
[~2024-06-30] VITALS: Ht 160 cm; Wt 202.8 kg
[2024-06-30 10:58] VITALS: BP 131/76
[2024-06-30] MEDS ORDERED: Ondansetron Hydrochloride 4 MG/2 ML VIAL IV ONE (11:00)
[2024-06-30] MEDS ORDERED: MORPHINE Sulfate 2 MG/ML SYR IV ONE (11:00)
[2024-06-30 11:12] LABS: BASO # 0.1 10*3/uL (0.0-0.1); BASO % 0.7 % (0.0-1.0); EOS # 0.4 10*3/uL (0.0-0.4); EOS % 5.4 % (1.0-4.0); HEMATOCRIT 38.9 % (37.0-47.0); LYMPH # 2.1 10*3/uL (1.3-4.4); LYMPH % 30.3 % (27.0-41.0); MEAN CELL VOLUME 86.3 fl (81.0-99.0); MEAN CORPUSCULAR HGB 26.6 pg (27.0-31.0); MEAN CORPUSCULAR HGB CONC 30.8 g/dl (33.0-37.0); MEAN PLATELET VOLUME 9.3 fl (9.6-12.3); MONO # 0.9 10*3/uL (0.1-1.0); MONO % 12.4 % (3.0-9.0); NEUT # 3.5 10*3/uL (2.3-7.9); NEUT % 50.9 % (47.0-73.0); PLATELET COUNT AUTOMATED 255 10*3/uL (130-400); RED BLOOD COUNT 4.51 10*6/uL (4.10-5.10); RED CELL DISTRI WIDTH 14.7 % (0-14.5); WHITE BLOOD COUNT 6.9 10*3/uL (4.8-10.8)
[2024-06-30 11:25] LABS: BILIRUBIN Negative (Negative); BLOOD Trace-Lysed (Negative); CLARITY Clear (Clear); COLOR Yellow (Yellow); GLUCOSE Negative (Negative); KETONE Negative (Negative); LEUKO ESTERASE Negative (Negative); NITRITE Negative (Negative); PH 6.5 (4.5-8.0); SPECIFIC GRAVITY <= 1.005 (1.001-1.030); UROBILINOGEN 0.2 E.U./dl (0.0-1.0)
[2024-06-30] MEDS ORDERED: IOHEXOL 300 MG/ML 100 ML VIAL IV ONE (11:25)
[2024-06-30 11:38] LABS: POTASSIUM 3.8 mmol/L (3.4-5.1)
[2024-06-30 11:42] LABS: BACTERIA TRACE; EPITHELIAL CELLS 0-2; WBC 0-2 wbc/hpf (0-5)
[2024-06-30] MEDS ORDERED: METHOCARBAMOL750 M1 PO (13:42)
[2024-06-30] MEDS ORDERED: TRAMADOL HCL50 MG PO (13:42)
== END 2024-06-30 13:50 | disposition home or self-care (01) ==
LOC: ED 10:47
PROVIDERS: Emergency Medicine
DX: R10.31 Right lower quadrant pain (principal); M54.50 Low back pain, unspecified; I10 Essential (primary) hypertension; E78.5 Hyperlipidemia, unspecified; K21.9 Gastro-esophageal reflux disease without esophagitis; F32.A Depression, unspecified; F41.9 Anxiety disorder, unspecified; D64.9 Anemia, unspecified; E78.00 Pure hypercholesterolemia, unspecified; Z88.1 Allergy status to other antibiotic agents; Z88.5 Allergy status to narcotic agent; Z88.2 Allergy status to sulfonamides; Z88.8 Allergy status to other drugs, medicaments and biological substances; Z90.49 Acquired absence of other specified parts of digestive tract; Z90.89 Acquired absence of other organs; Z90.710 Acquired absence of both cervix and uterus; Z98.890 Other specified postprocedural states; Z87.891 Personal history of nicotine dependence

== ENCOUNTER → 2024-07-11 | Outpatient (CLI) | payer OTHER ==
[~2024-07-11] MED LIST changes: +METHOCARBAMOL750 M1 PO
[2024-07-11 12:55] LABS: BUN 22 mg/dl (9-23); CHLORIDE 100 mmol/L (98-107); POTASSIUM 4.4 mmol/L (3.4-5.1)
== END | disposition home or self-care (01) ==
LOC: LAB 10:21
PROVIDERS: ATTEND Internal Medicine Cardiovascular Disease
DX: I50.33 Acute on chronic diastolic (congestive) heart failure (principal)

== ENCOUNTER 2025-01-21 01:58 | Emergency (ER) | payer OTHER ==
[~2025-01-21] VITALS: Wt 215.9 kg
[2025-01-21 02:15] VITALS: BP 175/72
[2025-01-21] MEDS ORDERED: Acetaminophen/Hydrocodone 5 MG/325 MG TABLET PO ONE (02:30)
[2025-01-21] MEDS ORDERED: traMADol Hydrochloride 50 MG TAB PO ONE (04:25)
[2025-01-21] MEDS ORDERED: TRAMADOL HCL50 MG PO (04:43)
== END 2025-01-21 05:24 | disposition home or self-care (01) ==
LOC: ED 01:58
DX: M17.11 Unilateral primary osteoarthritis, right knee (principal); I12.9 Hypertensive chronic kidney disease with stage 1 through stage 4 chronic kidney disease, or unspecified chronic kidney disease; N18.30 Chronic kidney disease, stage 3 unspecified; E03.9 Hypothyroidism, unspecified; F32.A Depression, unspecified; F41.9 Anxiety disorder, unspecified; J45.909 Unspecified asthma, uncomplicated; E78.00 Pure hypercholesterolemia, unspecified; Z79.899 Other long term (current) drug therapy; Z88.6 Allergy status to analgesic agent; Z88.1 Allergy status to other antibiotic agents; Z88.2 Allergy status to sulfonamides; Z88.8 Allergy status to other drugs, medicaments and biological substances; Z90.49 Acquired absence of other specified parts of digestive tract; Z90.710 Acquired absence of both cervix and uterus; Z90.89 Acquired absence of other organs; Z98.890 Other specified postprocedural states

== ENCOUNTER → 2025-03-26 | Outpatient (CLI) | payer OTHER | END | disposition home or self-care (01) | LOC: MAMMO 00:38 | PROVIDERS: ATTEND Nurse Practitioner Family | DX: Z12.31 Encounter for screening mammogram for malignant neoplasm of breast (principal); R92.323 Mammographic fibroglandular density, bilateral breasts ==

== ENCOUNTER 2025-04-02 09:32 | Inpatient (IN) | payer OTHER ==
[~2025-04-02] VITALS: Ht 160 cm; Wt 202.9 kg
[2025-04-02 09:39] VITALS: BP 87/37
[2025-04-02] MEDS ORDERED: FAMOTIDINE40 MG PO (09:41)
[2025-04-02] MEDS ORDERED: ALDACTONE25 MG PO (09:43)
[2025-04-02] MEDS ORDERED: BUMETANIDE2 MG PO (09:43)
[2025-04-02 10:04] LABS: BASO % 0.6 % (0.0-1.0); EOS # 0.5 10*3/uL (0.0-0.4); EOS % 7.9 % (1.0-4.0); HEMATOCRIT 38.9 % (37.0-47.0); MEAN CELL VOLUME 86.4 fl (81.0-99.0); MEAN CORPUSCULAR HGB 26.7 pg (27.0-31.0); MEAN CORPUSCULAR HGB CONC 30.8 g/dl (33.0-37.0); MEAN PLATELET VOLUME 9.7 fl (9.6-12.3); MONO # 0.7 10*3/uL (0.1-1.0); MONO % 10.4 % (3.0-9.0); NEUT # 3.3 10*3/uL (2.3-7.9); NEUT % 51.7 % (47.0-73.0); PLATELET COUNT AUTOMATED 232 10*3/uL (130-400); RED CELL DISTRI WIDTH 16.1 % (0-14.5); WHITE BLOOD COUNT 6.3 10*3/uL (4.8-10.8)
[2025-04-02 10:17] LABS: ACT PARTIAL THROMBO TIME 27.8 SECONDS (20.0-32.1)
[2025-04-02 10:35] LABS: BUN 18 mg/dl (9-23); CHLORIDE 102 mmol/L (98-107); POTASSIUM 4.9 mmol/L (3.4-5.1)
[2025-04-02 11:16] VITALS: BP 90/63
[2025-04-02 12:42] LABS: BILIRUBIN Negative (Negative); BLOOD 1+ (Negative); CLARITY Clear (Clear); COLOR Yellow (Yellow); GLUCOSE Negative (Negative); KETONE Negative (Negative); LEUKO ESTERASE Negative (Negative); NITRITE Negative (Negative); PH 7.5 (4.5-8.0); UROBILINOGEN 0.2 E.U./dl (0.0-1.0)
[2025-04-02 12:53] VITALS: BP 93/67
[2025-04-02] MEDS ORDERED: SODIUM CHLORIDE 0.9% 1,000 ML IV ONE (13:30)
[2025-04-02 13:50] LABS: BACTERIA 1+; WBC 0-2 wbc/hpf (0-5)
[2025-04-02] MEDS ORDERED: ACETAMINOPHEN 325 MG TAB PO PRN (14:40)
[2025-04-02] MEDS ORDERED: TEMAZEPAM 15 MG CAP PO PRN (14:40)
[2025-04-02] MEDS ORDERED: Ondansetron Hydrochloride 4 MG/2 ML VIAL IV PRN (14:40)
[2025-04-02] MEDS ORDERED: BISACODYL 5 MG TAB PO PRN (14:40)
[2025-04-02] MEDS ORDERED: BISACODYL 10 MG SUPP R PRN (14:40)
[2025-04-02] MEDS ORDERED: Magnesium Hydroxide 30 ML UDC PO PRN (14:40)
[2025-04-02] MEDS ORDERED: ACETAMINOPHEN 650 MG SUPP R PRN (14:40)
[2025-04-02] MEDS ORDERED: MAGNESIUM SULFATE 50 ML IV ONE (14:50)
[2025-04-02] MEDS ORDERED: HEPARIN SODIUM 250 ML IV SCH (15:40)
[2025-04-02 15:53] VITALS: BP 178/98
[2025-04-02 16:00] VITALS: BP 132/83
[2025-04-02] MEDS ORDERED: Doxycycline Hyclate 100 MG in SODIUM CHLORIDE 0.9% 250 ML IV SCH (16:00)
[2025-04-02] MEDS ORDERED: DIGOXIN 500 MCG/2 ML AMP IV SCH ×3 (17:05→20:00)
[2025-04-02] MEDS ORDERED: RIVAROXABAN 20 MG TAB PO SCH (18:00)
[2025-04-02 20:00] VITALS: BP 118/89
[2025-04-02] MEDS ORDERED: ATORVASTATIN CALCIUM 40 MG TABLET PO SCH (22:00)
[2025-04-02] MEDS ORDERED: METOPROLOL SUCCINATE XR 25 MG TAB PO SCH (22:00)
[2025-04-03] VITALS: BP 102/44
[2025-04-03] MEDS ORDERED: SODIUM CHLORIDE 0.9% 500 ML IV ONE (00:45)
[2025-04-03] MEDS ORDERED: SODIUM CHLORIDE 0.9% 1,000 ML IV ONE (00:50)
[2025-04-03 05:02] VITALS: BP 135/75
[2025-04-03 06:28] LABS: BASO % 0.6 % (0.0-1.0); EOS # 0.4 10*3/uL (0.0-0.4); EOS % 5.8 % (1.0-4.0); MEAN CELL VOLUME 86.8 fl (81.0-99.0); MEAN CORPUSCULAR HGB CONC 31.1 g/dl (33.0-37.0); MEAN PLATELET VOLUME 10.3 fl (9.6-12.3); MONO # 0.8 10*3/uL (0.1-1.0); MONO % 11.5 % (3.0-9.0); NEUT # 3.8 10*3/uL (2.3-7.9); NEUT % 55.9 % (47.0-73.0); PLATELET COUNT AUTOMATED 210 10*3/uL (130-400); RED BLOOD COUNT 4.03 10*6/uL (4.10-5.10); RED CELL DISTRI WIDTH 16.2 % (0-14.5); WHITE BLOOD COUNT 6.8 10*3/uL (4.8-10.8)
[2025-04-03 07:25] LABS: ALKALINE PHOSPHATASE 52 U/L (46-116); BUN 15 mg/dl (9-23); CHLORIDE 106 mmol/L (98-107); CHOLESTEROL 120 mg/dL (<200); FREE T4 1.11 ng/dl (0.89-1.76); LDL CHOLESTEROL 56 mg/dL (9-159); POTASSIUM 4.2 mmol/L (3.4-5.1); SGPT/ALT 8 U/L (5-49); TRIGLYCERIDES 145 mg/dl (<150)
[2025-04-03 09:30] VITALS: BP 113/67
[2025-04-03] MEDS ORDERED: Metoprolol Tartrate 50 MG TAB PO SCH (10:00)
[2025-04-03] MEDS ORDERED: FAMOTIDINE 20 MG TAB PO SCH (10:00)
[2025-04-03] MEDS ORDERED: ASPIRIN ENTERIC COATED 81 MG TAB PO SCH (10:00)
[2025-04-03] MEDS ORDERED: Levothyroxine Sodium 25 MCG TAB PO SCH (10:00)
[2025-04-03] MEDS ORDERED: Technetium Tc 99M Tetrofosmi 0.23 MG KIT IJ SCH (11:15)
[2025-04-03] MEDS ORDERED: IOHEXOL 300 MG/ML 100 ML VIAL IV ONE (11:40)
[2025-04-03 12:00] VITALS: BP 149/82
[2025-04-03 16:00] VITALS: BP 154/85
[2025-04-03 20:00] VITALS: BP 162/66
[2025-04-04] VITALS: BP 137/64
[2025-04-04 05:53] LABS: BASO % 0.6 % (0.0-1.0); EOS # 0.5 10*3/uL (0.0-0.4); EOS % 7.3 % (1.0-4.0); MEAN CELL VOLUME 85.9 fl (81.0-99.0); MEAN CORPUSCULAR HGB CONC 31.5 g/dl (33.0-37.0); MEAN PLATELET VOLUME 10.4 fl (9.6-12.3); MONO # 0.8 10*3/uL (0.1-1.0); MONO % 12.2 % (3.0-9.0); NEUT # 3.1 10*3/uL (2.3-7.9); PLATELET COUNT AUTOMATED 181 10*3/uL (130-400); RED BLOOD COUNT 3.96 10*6/uL (4.10-5.10); RED CELL DISTRI WIDTH 16.3 % (0-14.5); WHITE BLOOD COUNT 6.2 10*3/uL (4.8-10.8)
[2025-04-04 06:01] LABS: BUN 12 mg/dl (9-23); CHLORIDE 105 mmol/L (98-107)
[2025-04-04 08:00] VITALS: BP 163/74
[2025-04-04] MEDS ORDERED: SODIUM CHLORIDE Nasal 44 ml bottle NAS PRN (08:25)
[2025-04-04] MEDS ORDERED: MUPIROCIN 15 GM TUBE T SCH (10:00)
[2025-04-04 12:00] VITALS: BP 158/68
[2025-04-04] MEDS ORDERED: RIVAROXABAN 20 MG TAB PO SCH (18:00)
== END 2025-04-04 12:18 | disposition home or self-care (01) | DRG 280 ==
LOC: ED 09:32 → 4E 13:45 → EDHOLD 13:45 → 4E 15:04
PROVIDERS: Internal Medicine; ADMIT Internal Medicine; ATTEND Internal Medicine
PROC: 05HF33Z Insertion of Infusion Device into Left Cephalic Vein, Percutaneous Approach (ICD-10-PCS; principal; 2025-04-02)
PROC: B54NZZA Ultrasonography of Left Upper Extremity Veins, Guidance (ICD-10-PCS; 2025-04-02)
DX: I48.91 Unspecified atrial fibrillation (principal); I50.33 Acute on chronic diastolic (congestive) heart failure; I21.A1 Myocardial infarction type 2; I13.0 Hypertensive heart and chronic kidney disease with heart failure and stage 1 through stage 4 chronic kidney disease, or unspecified chronic kidney disease; N30.01 Acute cystitis with hematuria; Z68.45 Body mass index [BMI] 70 or greater, adult; E03.9 Hypothyroidism, unspecified; K21.9 Gastro-esophageal reflux disease without esophagitis; G89.29 Other chronic pain; M54.9 Dorsalgia, unspecified; N18.30 Chronic kidney disease, stage 3 unspecified; E78.00 Pure hypercholesterolemia, unspecified; S81.802A Unspecified open wound, left lower leg, initial encounter; I95.9 Hypotension, unspecified; N28.1 Cyst of kidney, acquired; D64.9 Anemia, unspecified; E66.01 Morbid (severe) obesity due to excess calories; Z66 Do not resuscitate; Z88.6 Allergy status to analgesic agent; Z88.1 Allergy status to other antibiotic agents; Z88.2 Allergy status to sulfonamides; Z88.8 Allergy status to other drugs, medicaments and biological substances; Z91.09 Other allergy status, other than to drugs and biological substances; Z79.899 Other long term (current) drug therapy; Z79.01 Long term (current) use of anticoagulants; Z79.2 Long term (current) use of antibiotics; Z90.49 Acquired absence of other specified parts of digestive tract; Z90.710 Acquired absence of both cervix and uterus; Z87.891 Personal history of nicotine dependence; Z82.49 Family history of ischemic heart disease and other diseases of the circulatory system; Z83.3 Family history of diabetes mellitus; Z80.8 Family history of malignant neoplasm of other organs or systems; X58.XXXA Exposure to other specified factors, initial encounter; Y93.89 Activity, other specified; Y92.89 Other specified places as the place of occurrence of the external cause; Y99.8 Other external cause status

== ENCOUNTER → 2025-04-09 | Outpatient (CLI) | payer OTHER ==
[~2025-04-09] MED LIST changes: +ALDACTONE25 MG PO; +BUMETANIDE2 MG PO; +FAMOTIDINE40 MG PO
== END | disposition home or self-care (01) ==
LOC: WOUNDCARE 01:38
PROVIDERS: ATTEND Nurse Practitioner Family
DX: S81.802A Unspecified open wound, left lower leg, initial encounter (principal); L97.822 Non-pressure chronic ulcer of other part of left lower leg with fat layer exposed; I12.9 Hypertensive chronic kidney disease with stage 1 through stage 4 chronic kidney disease, or unspecified chronic kidney disease; N18.30 Chronic kidney disease, stage 3 unspecified; I89.0 Lymphedema, not elsewhere classified; I48.91 Unspecified atrial fibrillation; I25.2 Old myocardial infarction; E78.00 Pure hypercholesterolemia, unspecified; E03.9 Hypothyroidism, unspecified; K21.9 Gastro-esophageal reflux disease without esophagitis; M17.11 Unilateral primary osteoarthritis, right knee; G89.29 Other chronic pain; E66.01 Morbid (severe) obesity due to excess calories; Z90.49 Acquired absence of other specified parts of digestive tract; Z90.710 Acquired absence of both cervix and uterus; Z98.890 Other specified postprocedural states; Z87.891 Personal history of nicotine dependence; Z79.82 Long term (current) use of aspirin; Z79.899 Other long term (current) drug therapy; W25.XXXA Contact with sharp glass, initial encounter; Y93.89 Activity, other specified; Y92.098 Other place in other non-institutional residence as the place of occurrence of the external cause; Y99.8 Other external cause status

== ENCOUNTER → 2025-04-10 | Outpatient (CLI) | payer OTHER | END | disposition home or self-care (01) | LOC: RAD 12:20 | PROVIDERS: ATTEND Internal Medicine Critical Care Medicine | DX: R06.02 Shortness of breath (principal); I51.7 Cardiomegaly ==

== ENCOUNTER → 2025-04-24 | Outpatient (CLI) | payer OTHER ==
[~2025-04-24] MED LIST changes: +Regadenoson 0.4 MG/5 ML SYR IV ONE
== END | disposition home or self-care (01) ==
LOC: CARD 04-23 07:30 → WOUNDCARE 02:40 → CARD 07:30 → WOUNDCARE 07:30
PROVIDERS: ATTEND Internal Medicine Cardiovascular Disease
DX: S81.802D Unspecified open wound, left lower leg, subsequent encounter (principal); L97.822 Non-pressure chronic ulcer of other part of left lower leg with fat layer exposed; I12.9 Hypertensive chronic kidney disease with stage 1 through stage 4 chronic kidney disease, or unspecified chronic kidney disease; N18.30 Chronic kidney disease, stage 3 unspecified; I48.91 Unspecified atrial fibrillation; I25.2 Old myocardial infarction; E03.9 Hypothyroidism, unspecified; E78.00 Pure hypercholesterolemia, unspecified; K21.9 Gastro-esophageal reflux disease without esophagitis; M19.90 Unspecified osteoarthritis, unspecified site; R73.03 Prediabetes; E66.01 Morbid (severe) obesity due to excess calories; Z87.891 Personal history of nicotine dependence; Z90.49 Acquired absence of other specified parts of digestive tract; Z90.710 Acquired absence of both cervix and uterus; Z98.890 Other specified postprocedural states; Z79.82 Long term (current) use of aspirin; Z79.899 Other long term (current) drug therapy; X58.XXXD Exposure to other specified factors, subsequent encounter

== ENCOUNTER 2025-06-28 03:11 | Inpatient (IN) | payer OTHER ==
[~2025-06-28] VITALS: Ht 160 cm; Wt 202.3 kg
[2025-06-28] VITALS (9 sets, daily range): BP systolic 93–134; BP diastolic 53–76
[~2025-06-28 03:11] MED LIST changes: -Regadenoson 0.4 MG/5 ML SYR IV ONE
[2025-06-28 03:31] LABS: BASO # 0.0 10*3/uL (0.0-0.1); BASO % 0.3 % (0.0-1.0); EOS # 0.0 10*3/uL (0.0-0.4); EOS % 0.1 % (1.0-4.0); MEAN CELL VOLUME 87.4 fl (81.0-99.0); MEAN CORPUSCULAR HGB 27.6 pg (27.0-31.0); MEAN PLATELET VOLUME 9.8 fl (9.6-12.3); MONO # 0.6 10*3/uL (0.1-1.0); MONO % 8.0 % (3.0-9.0); NEUT # 5.2 10*3/uL (2.3-7.9); NEUT % 71.1 % (47.0-73.0); NUCLEATED RED BLOOD CELL 0.0 % (0.0-0.0); NUCLEATED RED BLOOD CELL 0.0 10*3/uL (0.0-0.0); PLATELET COUNT AUTOMATED 246 10*3/uL (130-400); RED CELL DISTRI WIDTH 14.0 % (0-14.5)
[2025-06-28 03:49] LABS: BUN 18 mg/dl (9-23)
[2025-06-28 03:50] LABS: BILIRUBIN Negative (Negative); BLOOD 2+ (Negative); CLARITY Cloudy (Clear); COLOR Yellow (Yellow); KETONE Negative (Negative); LEUKO ESTERASE Negative (Negative); NITRITE Negative (Negative); PH 6.5 (4.5-8.0); SPECIFIC GRAVITY <= 1.005 (1.001-1.030); UROBILINOGEN 0.2 E.U./dl (0.0-1.0)
[2025-06-28 03:57] LABS: BACTERIA TRACE; EPITHELIAL CELLS 16-20; MUCOUS TRACE; WBC 0-2 wbc/hpf (0-5)
[2025-06-28 04:13] LABS: ACT PARTIAL THROMBO TIME 27.3 SECONDS (20.0-32.1)
[2025-06-28] MEDS ORDERED: DILTIAZEM HCL IN NACL,ISO-OSM 5 ML IV ONE (04:50)
[2025-06-28] MEDS ORDERED: SODIUM CHLORIDE 0.9% 500 ML IV ONE (06:00)
[2025-06-28] MEDS ORDERED: BISACODYL 10 MG SUPP R PRN (08:30)
[2025-06-28] MEDS ORDERED: Ondansetron Hydrochloride 4 MG/2 ML VIAL IV PRN (08:30)
[2025-06-28] MEDS ORDERED: ACETAMINOPHEN 325 MG TAB PO PRN (08:30)
[2025-06-28] MEDS ORDERED: BISACODYL 5 MG TAB PO PRN (08:30)
[2025-06-28] MEDS ORDERED: FUROSEMIDE 40 MG/4 ML VIAL IV ONE (08:35)
[2025-06-28] MEDS ORDERED: FAMOTIDINE 20 MG TAB PO SCH (10:00)
[2025-06-28] MEDS ORDERED: SPIRONOLACTONE 25 MG TAB PO SCH (10:00)
[2025-06-28] MEDS ORDERED: METOPROLOL SUCCINATE XR 50 MG TAB PO SCH (10:00)
[2025-06-28] MEDS ORDERED: ASPIRIN ENTERIC COATED 81 MG TAB PO SCH (10:00)
[2025-06-28] MEDS ORDERED: ATORVASTATIN CALCIUM 10 MG TAB PO SCH (18:00)
[2025-06-28] MEDS ORDERED: RIVAROXABAN 20 MG TAB PO SCH (18:00)
[2025-06-29] VITALS: BP 108/49
[2025-06-29 05:21] LABS: BUN 21 mg/dl (9-23); SGPT/ALT 9 U/L (5-49)
[2025-06-29 06:19] LABS: BASO # 0.1 10*3/uL (0.0-0.1); BASO % 0.8 % (0.0-1.0); EOS # 0.4 10*3/uL (0.0-0.4); EOS % 4.8 % (1.0-4.0); MEAN CELL VOLUME 88.5 fl (81.0-99.0); MEAN CORPUSCULAR HGB 27.1 pg (27.0-31.0); MEAN PLATELET VOLUME 11.2 fl (9.6-12.3); MONO # 0.9 10*3/uL (0.1-1.0); MONO % 12.0 % (3.0-9.0); NEUT # 3.1 10*3/uL (2.3-7.9); NEUT % 42.8 % (47.0-73.0); NUCLEATED RED BLOOD CELL 0.0 % (0.0-0.0); NUCLEATED RED BLOOD CELL 0.0 10*3/uL (0.0-0.0); PLATELET COUNT AUTOMATED 253 10*3/uL (130-400); RED CELL DISTRI WIDTH 14.5 % (0-14.5)
[2025-06-29 08:00] VITALS: BP 137/91
[2025-06-29] MEDS ORDERED: BUMETANIDE 1 MG/4 ML VIAL IV SCH ×2 (10:45→18:00)
[2025-06-29 12:00] VITALS: BP 110/60
[2025-06-29 16:00] VITALS: BP 137/91
[2025-06-29 20:00] VITALS: BP 117/69
[2025-06-30] VITALS: BP 105/71
[2025-06-30 06:00] LABS: BUN 24 mg/dl (9-23)
[2025-06-30 08:00] VITALS: BP 118/86
[2025-06-30] MEDS ORDERED: BUMETANIDE 1 MG/4 ML VIAL IV SCH (10:00)
[2025-06-30 12:00] VITALS: BP 121/79
[2025-06-30 16:00] VITALS: BP 98/54
[2025-06-30 20:00] VITALS: BP 132/70
[2025-07-01] VITALS: BP 93/55
[2025-07-01 06:40] LABS: BUN 22.0 mg/dl (9-23)
[2025-07-01 08:00] VITALS: BP 90/54
[2025-07-01] MEDS ORDERED: DIGOXIN 500 MCG/2 ML AMP IV SCH (09:10)
[2025-07-01 11:38] VITALS: BP 133/64
[2025-07-01 16:00] VITALS: BP 109/60
[2025-07-01 20:00] VITALS: BP 108/42
[2025-07-02] VITALS: BP 109/39
[2025-07-02 06:47] LABS: BUN 22 mg/dl (9-23)
[2025-07-02 08:00] VITALS: BP 128/73
[2025-07-02] MEDS ORDERED: DIGOXIN125 MCG PO (11:28)
[2025-07-02 12:00] VITALS: BP 132/66
[2025-07-02] MEDS ORDERED: DIGOXIN 125 MCG TAB PO SCH (14:00)
== END 2025-07-02 13:15 | disposition home or self-care (01) | DRG 291 ==
LOC: ED 03:11 → 4E 06:46 → EDHOLD 06:46 → 4E 18:56
PROVIDERS: Internal Medicine; Registered Nurse; ADMIT Student in an Organized Health Care Education/Training Program; ATTEND Student in an Organized Health Care Education/Training Program
DX: I13.0 Hypertensive heart and chronic kidney disease with heart failure and stage 1 through stage 4 chronic kidney disease, or unspecified chronic kidney disease (principal); I50.33 Acute on chronic diastolic (congestive) heart failure; E87.20 Acidosis, unspecified; Z68.45 Body mass index [BMI] 70 or greater, adult; I48.91 Unspecified atrial fibrillation; E66.01 Morbid (severe) obesity due to excess calories; K21.9 Gastro-esophageal reflux disease without esophagitis; E78.00 Pure hypercholesterolemia, unspecified; E03.9 Hypothyroidism, unspecified; I89.0 Lymphedema, not elsewhere classified; N18.30 Chronic kidney disease, stage 3 unspecified; Z88.2 Allergy status to sulfonamides; Z88.8 Allergy status to other drugs, medicaments and biological substances; Z90.49 Acquired absence of other specified parts of digestive tract; Z90.710 Acquired absence of both cervix and uterus; Z82.49 Family history of ischemic heart disease and other diseases of the circulatory system; Z83.3 Family history of diabetes mellitus; Z80.0 Family history of malignant neoplasm of digestive organs; I25.2 Old myocardial infarction

== ENCOUNTER 2025-10-05 05:06 | Inpatient (IN) | payer OTHER ==
[~2025-10-05] VITALS: Ht 160 cm; Wt 196.0 kg
[2025-10-05] VITALS (13 sets, daily range): BP systolic 78–125; BP diastolic 48–81
[~2025-10-05 05:06] MED LIST changes: +DIGOXIN125 MCG PO
[2025-10-05] MEDS ORDERED: GOOD NEIGHBOR L10 MG PO (05:14)
[2025-10-05] MEDS ORDERED: SODIUM CHLORIDE 0.9% 500 ML IV ONE ×2 (05:55→07:25)
[2025-10-05] MEDS ORDERED: DIGOXIN 500 MCG/2 ML AMP IV ONE ×2 (06:00→06:20)
[2025-10-05 06:07] LABS: BASO # 0.1 10*3/uL (0.0-0.1); BASO % 0.7 % (0.0-1.0); EOS # 0.4 10*3/uL (0.0-0.4); EOS % 5.0 % (1.0-4.0); MEAN CELL VOLUME 89.2 fl (81.0-99.0); MEAN CORPUSCULAR HGB 28.3 pg (27.0-31.0); MEAN PLATELET VOLUME 10.1 fl (9.6-12.3); MONO # 0.8 10*3/uL (0.1-1.0); MONO % 10.7 % (3.0-9.0); NEUT # 3.7 10*3/uL (2.3-7.9); NEUT % 50.4 % (47.0-73.0); NUCLEATED RED BLOOD CELL 0.0 % (0.0-0.0); NUCLEATED RED BLOOD CELL 0.0 10*3/uL (0.0-0.0); PLATELET COUNT AUTOMATED 241 10*3/uL (130-400); RED CELL DISTRI WIDTH 14.6 % (0-14.5)
[2025-10-05 06:19] LABS: BUN 23 mg/dl (9-23)
[2025-10-05 06:48] LABS: ACT PARTIAL THROMBO TIME 32.6 SECONDS (20.0-32.1)
[2025-10-05] MEDS ORDERED: DILTIAZEM HCL IN NACL,ISO-OSM 5 ML IV ONE (06:55)
[2025-10-05] MEDS ORDERED: MAGNESIUM SULFATE 100 ML IV ONE (07:00)
[2025-10-05] MEDS ORDERED: MAGNESIUM SULFATE 50 ML IV ONE (07:25)
[2025-10-05] MEDS ORDERED: Amiodarone Hydrochloride 150 MG,IV 1 EA in DEXTROSE 5% 100 ML IV ONE (08:10)
[2025-10-05] MEDS ORDERED: Amiodarone Hydrochloride 900 MG in DEXTROSE 5% 500 ML IV SCH ×2 (08:30→10:15)
[2025-10-05] MEDS ORDERED: BISACODYL 5 MG TAB PO PRN (08:45)
[2025-10-05] MEDS ORDERED: ACETAMINOPHEN 325 MG TAB PO PRN (08:45)
[2025-10-05] MEDS ORDERED: ACETAMINOPHEN 650 MG SUPP R PRN (08:45)
[2025-10-05] MEDS ORDERED: BISACODYL 10 MG SUPP R PRN (08:45)
[2025-10-05 10:34] LABS: BILIRUBIN Negative (Negative); BLOOD 2+ (Negative); CLARITY Clear (Clear); COLOR Yellow (Yellow); KETONE Negative (Negative); LEUKO ESTERASE Trace (Negative); NITRITE Negative (Negative); PH 6.0 (4.5-8.0); SPECIFIC GRAVITY 1.015 (1.001-1.030); UROBILINOGEN 1.0 E.U./dl (0.0-1.0)
[2025-10-05 10:44] LABS: YEAST TRACE
[2025-10-05 10:45] LABS: BACTERIA 1+; CALCIUM OXALATE CRYSTALS Trace
[2025-10-05] MEDS ORDERED: RIVAROXABAN 20 MG TAB PO SCH (18:00)
[2025-10-05] MEDS ORDERED: METOPROLOL SUCCINATE XR 50 MG TAB PO SCH (22:00)
[2025-10-06] VITALS: BP 148/29
[2025-10-06 04:00] VITALS: BP 131/61
[2025-10-06 05:33] LABS: BUN 23 mg/dl (9-23); FREE T4 1.28 ng/dl (0.89-1.76); LDL CHOLESTEROL 78 mg/dL (9-159)
[2025-10-06 06:29] LABS: BASO # 0.0 10*3/uL (0.0-0.1); BASO % 0.6 % (0.0-1.0); EOS # 0.4 10*3/uL (0.0-0.4); EOS % 6.2 % (1.0-4.0); MEAN CELL VOLUME 89.3 fl (81.0-99.0); MEAN CORPUSCULAR HGB 27.9 pg (27.0-31.0); MEAN PLATELET VOLUME 10.8 fl (9.6-12.3); MONO # 0.9 10*3/uL (0.1-1.0); MONO % 13.1 % (3.0-9.0); NEUT # 3.6 10*3/uL (2.3-7.9); NEUT % 49.9 % (47.0-73.0); NUCLEATED RED BLOOD CELL 0.0 % (0.0-0.0); NUCLEATED RED BLOOD CELL 0.0 10*3/uL (0.0-0.0); PLATELET COUNT AUTOMATED 228 10*3/uL (130-400); RED CELL DISTRI WIDTH 15.0 % (0-14.5)
[2025-10-06 08:00] VITALS: BP 124/69
[2025-10-06] MEDS ORDERED: SPIRONOLACTONE 25 MG TAB PO SCH (10:00)
[2025-10-06] MEDS ORDERED: LORATADINE 10 MG TAB PO SCH (10:00)
[2025-10-06] MEDS ORDERED: ASPIRIN ENTERIC COATED 81 MG TAB PO SCH (10:00)
[2025-10-06] MEDS ORDERED: FAMOTIDINE 20 MG TAB PO SCH (10:00)
== END 2025-10-06 13:15 | disposition home or self-care (01) | DRG 309 ==
LOC: ED 05:06 → EDHOLD 08:19 → ICCU 08:19 → EDHOLD 08:55 → 5E 09:07 → ICCU 09:12
PROVIDERS: Emergency Medicine; Internal Medicine; ADMIT Family Medicine; ATTEND Family Medicine
DX: I48.91 Unspecified atrial fibrillation (principal); E44.0 Moderate protein-calorie malnutrition; N39.0 Urinary tract infection, site not specified; I50.32 Chronic diastolic (congestive) heart failure; I13.0 Hypertensive heart and chronic kidney disease with heart failure and stage 1 through stage 4 chronic kidney disease, or unspecified chronic kidney disease; Z68.45 Body mass index [BMI] 70 or greater, adult; E83.42 Hypomagnesemia; E66.01 Morbid (severe) obesity due to excess calories; N18.30 Chronic kidney disease, stage 3 unspecified; E78.5 Hyperlipidemia, unspecified; E03.9 Hypothyroidism, unspecified; K21.9 Gastro-esophageal reflux disease without esophagitis; R73.9 Hyperglycemia, unspecified; G89.29 Other chronic pain; E78.00 Pure hypercholesterolemia, unspecified; M17.11 Unilateral primary osteoarthritis, right knee; Z88.2 Allergy status to sulfonamides; Z88.8 Allergy status to other drugs, medicaments and biological substances; Z90.710 Acquired absence of both cervix and uterus; Z90.49 Acquired absence of other specified parts of digestive tract; Z80.0 Family history of malignant neoplasm of digestive organs; Z83.3 Family history of diabetes mellitus; Z82.49 Family history of ischemic heart disease and other diseases of the circulatory system; Z85.22 Personal history of malignant neoplasm of nasal cavities, middle ear, and accessory sinuses